=== PATIENT | male | born 1955 | race Caucasian/White ===

== ENCOUNTER → 2021-01-14 | Outpatient (CLI) | payer OTHER ==
--- NOTE | 2021-01-14 12:22 | 2DMMODE ---
[place] [address] 2 D/M-MODE ECHOCARDIOGRAM Name: MINEMIMI Lomax Room: [facility]#: [id number] Admission: 01/14/21 Attend Phys: Guilherme Sheth Discharge: Date of : 59 Date of Service: 01/14/21 1221 Report #: [id number] THIS REPORT FOR: cc: Guilherme Sheth,Guilherme Cantor,Jesse Villanueva MD [facility] ~ APPROVED REPORT Study performed: 01/14/2021 10:17:26 EXAM: Comprehensive 2D, Doppler, and color-flow Echocardiogram Patient Location: Out-Patient BSA: 2.14 HR: 68 bpm BP: 136/74 mmHg Other Information Study Quality: Good Indications Murmur 2D Dimensions IVSd: 11.95 (7-11mm) LVOT Diam: 20.43 (18-24mm) LVDd: 52.25 mm PWd: 11.68 (7-11mm) Ascending Ao: 32.67 (22-36mm) LVDs: 28.17 (25-40mm) Aortic Root: 35.54 mm Volumes Left Atrial Volume (Systole) LA ESV Index: 18.70 mL/m2 Aortic Valve AoV Peak Avel.: 1.22 m/s AO Peak Gr.: 5.98 mmHg LVOT Max P.67 mmHg AO Mean Gr.: 2.89 mmHg LVOT Mean P.72 mmHg LVOT Max V: 0.96 m/s AO V2 VTI: 21.82 cm LVOT Mean V: 0.60 m/s DAVID (VTI): 3.24 cm2 LVOT V1 VTI: 21.55 cm Mitral Valve E/A Ratio: 0.98 [place] [address] 2 D/M-MODE ECHOCARDIOGRAM Name: MIMI BAUTISTA Room: [facility]#: [id number] Admission: 01/14/21 Attend Phys: Guilherme Sheth Discharge: Date of : 59 Date of Service: 01/14/21 1221 Report #: [id number] MV Decel. Time: 167.83 ms MV E Max Avel.: 0.64 m/s MV PHT: 48.67 ms MVA (PHT): 4.52 cm2 TDI E/Lateral E': 7.11 E/Medial E': 9.14 Medial E' Avel.: 0.07 m/s Lateral E' Avel.: 0.09 m/s Pulmonary Valve PV Peak Avel.: 1.23 m/s PV Peak Gr.: 6.10 mmHg Tricuspid Valve RAP Estimate: 5.00 mmHg TR Peak Gr.: 26.77 mmHg RVSP: 31.77 mmHg PA Pressure: 31.77 mmHg Left Ventricle The left ventricle is normal size. There is normal LV segmental wall motion. Mild concentric left ventricular hypertrophy. Left ventricular systolic function is normal. The left ventricular ejection fraction is within the normal range. LVEF is 55-60%. Grade I - abnormal relaxation pattern. Right Ventricle The right ventricle is normal size. The right ventricular systolic function is normal. Atria The left atrium size is normal. The right atrium size is normal. Aortic Valve The aortic valve is normal in structure. No aortic regurgitation is present. There is no aortic valvular stenosis. Mitral Valve The mitral valve is normal in structure. There is no mitral valve regurgitation noted. No evidence of mitral valve stenosis. Tricuspid Valve The tricuspid valve is normal in structure. Mild tricuspid regurgitation[place] [address] 2 D/M-MODE ECHOCARDIOGRAM Name: MIMI BAUTISTA Room: [facility]#: [id number] Admission: 01/14/21 Attend Phys: Guilherme Sheth Discharge: Date of : 59 Date of Service: 01/14/21 1221 Report #: [id number] The pulmonary valve is normal in structure. Mild pulmonic regurgitation. Great Vessels The aortic root is normal in size. IVC is normal in size and collapses >50% with inspiration. Pericardium There is no pericardial effusion. <Conclusion> LVEF is 55-60%. Mild concentric left ventricular hypertrophy. <ELECTRONICALLY SIGNED> By: Jesse Hickman MD, FACC 01/14/21 122 122 122 Jesse Hickman MD, FACC /INF
== END ==
LOC: M.CRD 09:46 → EDSEX 11:00
PROVIDERS: ATTEND Family Medicine
DX: I08.8 Other rheumatic multiple valve diseases (principal); E78.2 Mixed hyperlipidemia; I10 Essential (primary) hypertension

== ENCOUNTER → 2021-10-07 | Outpatient (CLI) | payer OTHER ==
[2021-10-07 11:00] LABS: ABSOLUTE BASOPHILS 0.1 thou/uL (0.0-0.2); ABSOLUTE EOSINOPHILS 0.2 thou/uL (0.0-0.7); ABSOLUTE LYMPHOCYTES 1.9 thou/uL (0.8-5.3); ABSOLUTE MONOCYTES 0.5 thou/uL (0.0-1.2); ABSOLUTE NEUTROPHILS 3.2 thou/uL (1.6-8.1); EOSINOPHILS 3.8 %; HEMATOCRIT 42.1 % (42.0-52.0); HEMOGLOBIN 14.1 gm/dL (14.0-18.0); LYMPHOCYTES 32.4 %; MCH 30.6 pg (26.0-34.0); MCHC 33.6 g/dL (28.0-37.0); MCV 91.2 fL (80.0-100.0); MONOCYTES 8.4 %; MPV 6.8 fl. (7.2-11.1); NUCLEATED RBCS 0 /100WBC; PLATELET COUNT* 319 thou/uL (150-400); POLYS 54.4 %; RBC 4.62 mil/uL (4.50-6.00); RDW-CV 12.9 % (10.5-14.5)
[2021-10-07 16:49] LABS: ALBUMIN 3.9 g/dL (3.4-5.0); ALKALINE PHOSPHATASE 92 U/L (46-116); ANION GAP 7 mmol/L (7-16); BUN 13 mg/dL (7-18); CALCIUM 9.1 mg/dL (8.5-10.1); CHLORIDE 104 mmol/L (98-107); CHOLESTEROL 168 mg/dL (<200); CO2 30 mmol/L (21-32); CREATININE 1.2 mg/dL (0.6-1.3); GLUCOSE 104 mg/dL (70-99); HDL CHOLESTEROL 41 mg/dL (>40); LDL CHOLESTEROL 105 mg/dL (<100); POTASSIUM 4.6 mmol/L (3.5-5.1); SGOT 22 U/L (15-37); SGPT 41 U/L (30-65); SODIUM 141 mmol/L (136-145); TC:HDL 4.1 Ratio (Not establshd); TOTAL BILIRUBIN 0.6 mg/dL (<0.1-1.0); TOTAL PROTEIN 7.8 g/dL (6.4-8.2); TRIGLYCERIDE 113 mg/dL (<150); VLDL 23 mg/dL (<40)
[2021-10-07 16:51] LABS: SERUM ASSESSMENT Clear
[2021-10-08 07:08] LABS: GLYCOHEMOGLOBIN (HGB A1C) 6.4 % (4.8-5.6)
[2021-10-08 13:08] LABS: % FREE PSA 36.3 % (()); FREE PSA 0.29 ng/mL
== END ==
LOC: M.LAB 10:42
PROVIDERS: ATTEND Family Medicine
DX: Z12.5 Encounter for screening for malignant neoplasm of prostate (principal); I10 Essential (primary) hypertension; E78.2 Mixed hyperlipidemia